=== PATIENT | male | born 1980 | race Caucasian/White ===

== ENCOUNTER 2017-05-26 14:50 | Outpatient (CLI) | payer BC ==
--- NOTE | 2017-05-26 15:18 | RAD ---
RIGHT WRIST THREE VIEWS: History: Right wrist injury. FINDINGS: Scaphoid waist is intact. No acute fracture, dislocation or aggressive osseous erosions are evident. IMPRESSION: No acute osseous abnormalities are demonstrated. POS: [facility]
== END 2017-05-26 14:51 | disposition home or self-care (01) ==
LOC: NAV RAD 14:50
PROVIDERS: ATTEND Internal Medicine Hospice and Palliative Medicine
DX: S69.81XA Other specified injuries of right wrist, hand and finger(s), initial encounter (principal)

== ENCOUNTER 2020-04-29 09:09 | Emergency (ER) | payer OTHER, SELFPAY ==
[2020-04-29] MEDS ORDERED: Morphine 2 MG/ML SYRINGE ONE ×2 (09:27→09:50)
[2020-04-29] MEDS ORDERED: CEFAZOLIN 1 GM VIAL ONE (09:27)
[2020-04-29] MEDS ORDERED: Sodium Chloride 0.9% 100 ML ONE (09:28)
--- NOTE | 2020-04-29 09:47 | CT ---
EXAM: CT Facial Bones WO Con PROVIDED CLINICAL HISTORY: Trauma at work. Patient was compressing a sprain, knee sprain hit patient in face. Laceration and swe lling below left eyebrow and laceration to nose. COMPARISON: None FINDINGS: No fracture seen involving the facial bones. The orbits are normal and symmetric in appearance bilate rally. Minimal subcutaneous soft tissue swelling is seen in the left periorbital/appropriate location. Minimal subcutaneous soft tissue swelling is seen adjacent to the left nasal soft tissues. There is a oval-shaped area of increased density with associated gas density seen adjacent to the rig ht mandible. This is most compatible with foreign body (tobacco) after discussion with the emergency department physician. Mucosal thickening is present in the right maxillary antrum. Remainder the paranasal sinuses as well as visualized mastoid air cells are clear. IMPRESSION: 1. No evidence for fracture of facial bones. 2. Minimal subcutaneous soft tissue swelling. 3. Above findings discussed Dr. Solis in the emergency department on 04/29/2020 at 0939 hours.
[2020-04-29] MEDS ORDERED: Lidocaine 1% (PF) 30 ML VIAL ONE (09:49)
--- NOTE | 2020-04-29 09:51 | CT ---
CT head noncontrast HISTORY: Head injury. FINDINGS: There is no evidence of acute intracranial hemorrhage or infarct. The ventricles appear nor mal in size, shape and position. There is no mass effect or shift of midline structures. Cerebellar tonsils extend to the level of the foramen magnum on the lateral view without a pointed configuration. Borderline cerebellar tonsillar ectopia. Small polyp noted within the right maxillary sinus. IMPRESSION : No acute abnormalities are demonstrated.
== END 2020-04-29 11:10 | disposition home or self-care (01) ==
LOC: NAV ERS 09:09
DX: S01.112A Laceration without foreign body of left eyelid and periocular area, initial encounter (principal); S01.21XA Laceration without foreign body of nose, initial encounter; Z79.899 Other long term (current) drug therapy; W22.8XXA Striking against or struck by other objects, initial encounter
CPT/HCPCS: 12015; 70450; 70486; 96365; 96375; J0690; J2001; J2270; J3490

== ENCOUNTER 2020-05-06 11:10 | Emergency (ER) | payer SELFPAY | END 2020-05-06 12:10 | disposition home or self-care (01) | LOC: NAV ERS 11:10 | DX: S01.112D Laceration without foreign body of left eyelid and periocular area, subsequent encounter (principal); S01.21XD Laceration without foreign body of nose, subsequent encounter; X58.XXXD Exposure to other specified factors, subsequent encounter ==